=== PATIENT | male | born 1945 | race Caucasian/White ===

== ENCOUNTER → 2017-02-28 | Outpatient (CLI) | payer OTHER ==
[~2017-02-28] MED LIST: REGADENOSON 0.4 MG/5 ML DISP.SYRIN. IV ONE
--- NOTE | 2017-02-28 10:13 | CARD ---
APPROVED REPORT EXAM: Two-dimensional and M-mode echocardiogram with Doppler and color Doppler. Other Information Quality : Good INDICATION Cardiac Disease: CAD Angina 2D DIMENSIONS RVDd2.4 (2.9-3.5cm)Left Atrium(2D)3.1 (1.6-4.0cm) IVSd0.6 (0.7-1.1cm)Aortic Root(2D)2.3 (2.0-3.7cm) LVDd4.7 (3.9-5.9cm)LVOT Diameter2.1 (1.8-2.4cm) PWd0.7 (0.7-1.1cm)LVDs3.0 (2.5-4.0cm) FS (%) 30.0 %SV68.2 ml LVEF(%)60.0 (>50%) Aortic Valve AoV Peak Broderick.277.4cm/sAoV VTI65.2cm AO Peak GR.30.8mmHgLVOT Peak Broderick.78.2cm/s LVOT VTI 21.31cmAO Mean GR.16mmHg AI P 1/2 Vwgc405th Mitral Valve MV E Aicrytqb29.9cm/sMV DECEL EOAV438ju MV A Zdgogqpd99.4cm/sMV QOQ57ur E/A Ratio1.1MVA (PHT)3.12cm2 TDI E/Lateral E'10.1 Pulmonary Vein S1 Phrcdmkf39.6cm/sD2 Uezfvawj52.3cm/s PVa jbnaulmk095xoaw LEFT VENTRICLE The left ventricle is normal size. There is normal left ventricular wall thickness. The left ventricu lar systolic function is normal. The Ejection Fraction is 55-60%. There is normal LV segmental wall m otion. Transmitral Doppler flow pattern is Grade I-abnormal relaxation pattern. RIGHT VENTRICLE The right ventricle is normal size. The right ventricular systolic function is normal. ATRIA The left atrium size is normal. The right atrium size is normal. The interatrial septum is intact wit h no evidence for an atrial septal defect or patent foramen ovale as noted on 2-D or Doppler imaging. AORTIC VALVE The aortic valve is calcified and displays decreased opening. Doppler and Color Flow revealed moderat e aortic regurgitation. Doppler and color-flow analysis revealed mild to moderate aortic stenosis. MITRAL VALVE The mitral valve is calcified but opens well. There is no evidence of mitral valve prolapse. There is no mitral valve stenosis. Doppler and Color-flow revealed mild mitral regurgitation. TRICUSPID VALVE The tricuspid valve is normal in structure and function. Doppler and Color Flow revealed trace tricus pid regurgitation. There is no tricuspid valve stenosis. PULMONIC VALVE The pulmonary valve is normal in structure and function. Doppler and Color Flow revealed mild pulmoni c valvular regurgitation. There is no pulmonic valvular stenosis. GREAT VESSELS The aortic root is normal in size. The ascending aorta is normal in size. The IVC is normal in size a nd collapses >50% with inspiration. PERICARDIAL EFFUSION There is no evidence of significant pericardial effusion. Critical Notification Critical Value: No <Conclusion> The left ventricular systolic function is normal. The Ejection Fraction is 55-60%. There is normal LV segmental wall motion. Mild to moderate aortic stenosis. Moderate aortic regurgitation. Mild mitral regurgitation. Trace tricuspid regurgitation. There is no evidence of significant pericardial effusion.
--- NOTE | 2017-02-28 13:44 | RAD ---
APPROVED REPORT Test Type: Pharmacological Stress Nurse/Tech: DUKE LAMAR Test Indications: CAD Cardiac History: CAD, CARDIAC STENTS,SEE EHR Medications: SEE EHR Medical History: SEIZURE, SEE EHR Resting ECG: SR WITH BBB Resting Heart Rate: 60 bpm Resting Blood Pressure: 126/70mmHg Pretest Chest Pain: No chest pain Nurse/Tech Notes LUNG SOUNDS CLEAR, S1S2 WNL. Consent: The procedure was explained to the patient in lay terms. Informed consent was witnessed. Mario eout was entered into [employer]. History and Stress Test performed by LUIZ Milligan [facility]. Details Pharmacologic stress testing was performed using 0.4mg per 5ml of regadenoson given intravenously ove r 7-10 seconds. Stress Symptoms NONE POST EXERCISE Max HR: 95 bpm Max Blood Pressure: 155/59mmHg Chest Pain: No. Arrhythmia: No. ST Change: No. INTERPRETATION Stress EKG Conclusion: Baseline EKG showed sinus rhythm. No ischemic changes at peak stress. No arr hythmias. Imaging Protocol IMAGE PROTOCOL: Rest Tc-99m/stress Tc-99m 1 day Rest: Stress: Viability: Radiopharm.Tc99m EezoaaohoNa99b Sestamibi Dose10.7mCi 33.2mCi Img Date 02/28/2017 02/28/2017 Inj-Img Mtgx63wmj. 60min. Rest Admin Site:IV - Right AntecubitalAdministrator:NATY Lockett, ARRT (R)(N) Stress Admin Site: IV - Right AntecubitalAdministrator: LUIZ Milligan STRESS DATA End Diast. Vol.69.0mlAv. Heart Rate66.0bpm End Syst. Vol.15.0mlCO Index BSA3.6L/min Myocardial Kwpp544.0gEject. Rxewgpjq80.0% Stress Rates Pk. Fill Rate3.17EDV/secLVtime Pk. Fill 275.66msec Pk. Empty Rate4.50ESV/secLVtime Pk. Wouyu094.65msec 07/02 Pk. Fill1.17EDV/sec Stress Scores Regional WT0.00Summed WT1.00 Regional WM0.00Summed WM0.00 Study quality was good. Left Ventricular size was Normal at Rest and Stress. Lung uptake was Normal. Left Ventricular ejection fraction is 78%. The rest and stress images show normal perfusion, normal contraction and thickening. LV Perf. Quant 17 Seg. SSS0.00 17 Seg. SRS0.00 17 Seg. SDS0.00 Stress Defect Extent (% LAD)0.00Rest Defect Extent (% LAD)0.00Rev. Defect Extent (% LAD)0.00 Stress Defect Extent (% LCX) 0.00Rest Defect Extent (% LCX)0.00Rev. Defect Extent (% LCX)0.00 Stress Defect Extent (% RCA)0.00Rest Defect Extent (% RCA)0.00Rev. Defect Extent (% RCA)0.00 Stress Defect Extent (% SHARYN)0.00Rest Defect Extent (% SHARYN)0.00Rev. Defect Extent (% SHARYN)0.00 Conclusion 1. Regadenoson cardioisotope stress test did not show any evidence of ischemia or infarct. 2. Normal left ventricular systolic function with ejection fraction calculated at 78%. 3. Low risk for cardiac events.
== END | disposition home or self-care (01) ==
LOC: NM 07:34
PROVIDERS: ATTEND Internal Medicine Cardiovascular Disease
DX: I08.3 Combined rheumatic disorders of mitral, aortic and tricuspid valves (principal)
CPT/HCPCS: 78452; 93017; 93306; 96374; 96375; 96376; A9500; J2785

== ENCOUNTER → 2021-06-05 | Outpatient (CLI) | payer MEDICARE ==
--- NOTE | 2021-06-06 12:05 | CARD ---
MR#: [id number] Date of Study: 06/05/2021 Ordering Physician: ROCCO DAVIS, Referring Physician: ROCCO DAVIS, Tech: Lori Delgado, [facility] APPROVED REPORT EXAM: Two-dimensional and M-mode echocardiogram with Doppler and color Doppler. Other Information Quality : AverageHR: 94bpm Technically limited study due to body habitus. INDICATION Cardiac Disease: CAD RISK FACTORS Diabetes 2D DIMENSIONS Left Atrium(2D)3.3 (1.6-4.0cm)IVSd1.3 (0.7-1.1cm) Aortic Root(2D)3.3 (2.0-3.7cm)LVDd4.6 (3.9-5.9cm) LVOT Diameter2.0 (1.8-2.4cm)PWd1.2 (0.7-1.1cm) LVDs3.0 (2.5-4.0cm)FS (%) 34.3 % SV62.4 mlLVEF(%)63.3 (>50%) Aortic Valve AoV Peak Broderick.322.7cm/sAoV VTI65.3cm AO Peak GR.41.6mmHgLVOT Peak Broderick.102.0cm/s LVOT VTI 22.25cmAO Mean GR.25mmHg SARAH (VMAX)0.89ks7ZVV (VTI)1.09cm2 Mitral Valve MV E Jnedsiiw81.9cm/sMV A Ccrnyngf161.8cm/s MV E Mean Gr.2mmHgE/A Ratio0.6 TDI E/Lateral E'9.4E/Medial E'10.5 Pulmonary Valve PV Peak Xxnhfafr152.2cm/sPV Peak Grad.4mmHg Tricuspid Valve TR P. Kjqbwzaj105lp/sRAP FAKRTBTU2clPl TR Peak Gr.73egGrROEZ78mnNg Pulmonary Vein S1 Urpnoiar82.3cm/sD2 Hkzeiyka03.4cm/s PVa fwapfjea72ehap LEFT VENTRICLE The left ventricle is normal size. There is mild to moderate concentric left ventricular hypertrophy. The left ventricular systolic function is normal and the ejection fraction is within normal range. T he Ejection Fraction is 55-60%. There is normal LV segmental wall motion. Transmitral Doppler flow pa ttern is Grade I-abnormal relaxation pattern. RIGHT VENTRICLE The right ventricle is normal size. There is normal right ventricular wall thickness. The right ventr icular systolic function is normal. ATRIA The left atrium size is normal. The right atrium size is normal. The interatrial septum is intact wit h no evidence for an atrial septal defect or patent foramen ovale as noted on 2-D or Doppler imaging. AORTIC VALVE The aortic valve is not well visualized. Doppler and Color Flow revealed trace aortic regurgitation. Calculated aortic valve area is 1.14 cm2 with maximum pressure gradient of 49 mmHg and mean pressure gradient of 30 mmHg. There is moderate valvular aortic stenosis. Consider MICHELLE for further assessment based on clinical indication as the valve was not well visualized on this study. MITRAL VALVE The mitral valve is calcified but opens well. There is no evidence of mitral valve prolapse. There is no mitral valve stenosis. Doppler and Color-flow revealed trace mitral regurgitation. TRICUSPID VALVE The tricuspid valve is normal in structure and function. Doppler and Color Flow revealed trace tricus pid regurgitation with an estimated PAP of 29 mmHg. There is no tricuspid valve stenosis. PULMONIC VALVE The pulmonic valve is not well visualized. Doppler and Color Flow revealed trace pulmonic valvular re gurgitation. There is no pulmonic valvular stenosis. GREAT VESSELS The aortic root is normal in size. The IVC was not visualized. PERICARDIAL EFFUSION There is no evidence of significant pericardial effusion. Critical Notification Critical Value: No <Conclusion> The left ventricular systolic function is normal and the ejection fraction is within normal range. Th e Ejection Fraction is 55-60%. There is normal LV segmental wall motion. Calculated aortic valve area is 1.14 cm2 with maximum pressure gradient of 49 mmHg and mean pressure gradient of 30 mmHg. There is moderate valvular aortic stenosis. Consider MICHELLE for further assessment based on clinical indication as the valve was not well visualized on this study. Signed by : Juan R Ling, Electronically Approved : 06/06/2021 12:04:30
--- NOTE | 2021-06-06 12:21 | RAD ---
MR#: [id number] Date of Study: 06/05/2021 Ordering Physician: ROCCO DAVIS, Referring Physician: THANIA FONTAINE Tech: RT Hilda (R) (N) APPROVED REPORT Test Type: Exercise Stress Nurse/Tech: DUKE CONTRERAS Test Indications: CAD Cardiac History: CAD, STENTS- SEE EMR Medications: SEE EMR Medical History: SEE EMR Resting ECG: SR/ST Resting Heart Rate: 97 bpm Resting Blood Pressure: 142/73mmHg Pretest Chest Pain: No chest pain Nurse/Tech Notes S1,S2, LUNGS CTA, VSS, DENIED CHEST PAIN OR SOA. Consent: The procedure was explained to the patient in lay terms. Informed consent was witnessed. Mario eout was entered into [employer]. History and Stress Test performed by LUIZ Milligan Stress Symptoms PT TOLERATED TREADMILL TEST WELL, TARGET HEART RATE REACHED, NO COMPLAINTS OF CHEST PAIN. VSS. NO COM PLAINTS. POST EXERCISE Reason for Termination: Reached target heart rate Target HR: 122 Max HR: 161 bpm 131% of Maximum Predicted HR: 122 bpm Exercise duration: 4:38 min:sec, Stage Exercise capacity: 7.0METs Max Blood Pressure: 165/80mmHg Blood Pressure response to exercise: Normal blood pressure response during stress. Heart Rate response to exercise: WNL Chest Pain: No. Arrhythmia: . NO SIGNIFICANT CHANGES, OTHER THAN RATE DURING STRESS, RETURNED TO BASELINE EKG YO RUBY. INTERPRETATION Stress EKG Conclusion: No evidence of stress induced EKG changes. Imaging Protocol IMAGE PROTOCOL: Rest Tc-99m/stress Tc-99m 1 day Rest: Stress: Viability: Radiopharm.Tc99m LopmvevrwGr42c Sestamibi Irpb53aEd 33mCi Duration 15min. 15min. Img Date 06/05/2021 06/05/2021 Inj-Img Buqk93dde. 65min. Rest Admin Site:IV - Right AntecubitalAdministrator:RT Hilda (Kenneth)(N) Stress Admin Site: IV - Right AntecubitalAdministrator: LUIZ Milligan STRESS DATA End Diast. Vol.64.0mlAv. Heart Msde499.0bpm End Syst. Vol.7.0mlCO Index BSA0.0L/min Myocardial Cwth308.0gEject. Mnibxypg21.0% Stress Rates Pk. Fill Rate7.49EDV/secLVtime Pk. Fill 89.11msec Pk. Empty Rate8.11ESV/secLVtime Pk. Eject67.32msec /3 Pk. Fill3.17EDV/sec Stress Scores Regional WT0.00Summed WT8.00 Regional WM0.00Summed WM0.00 The rest and stress images show normal perfusion, normal contraction and thickening. LV Perf. Quant 17 Seg. SSS0.00 17 Seg. SRS0.00 17 Seg. SDS0.00 Stress Defect Extent (% LAD)0.00Rest Defect Extent (% LAD)0.00Rev. Defect Extent (% LAD)0.00 Stress Defect Extent (% LCX) 0.00Rest Defect Extent (% LCX)0.00Rev. Defect Extent (% LCX)0.00 Stress Defect Extent (% RCA)0.00Rest Defect Extent (% RCA)0.00Rev. Defect Extent (% RCA)0.00 Stress Defect Extent (% SHARYN)0.00Rest Defect Extent (% SHARYN)0.00Rev. Defect Extent (% SHARYN)0.00 Other Information Quality:Average Risk Assessment: Low Risk Conclusion 1. 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 No stress induced EKG changes to suggest ischemia. 3. Normal perfusion at stress/rest. 4. Normal EF at > 60% 5. Low risk study. Signed by : Juan R Ling, Electronically Approved : 06/06/2021 12:21:17
== END ==
LOC: ECHO 08:48
PROVIDERS: ATTEND Internal Medicine Cardiovascular Disease
DX: I08.0 Rheumatic disorders of both mitral and aortic valves (principal); R94.31 Abnormal electrocardiogram [ECG] [EKG]; I25.10 Atherosclerotic heart disease of native coronary artery without angina pectoris
CPT/HCPCS: 78452; 93017; 93306; A9500